=== PATIENT | female | born 1950 | race Caucasian/White ===

== ENCOUNTER 2021-02-16 11:10 | Emergency (ER) | payer MEDICARE ==
[~2021-02-16] VITALS: Ht 157.5 cm; Wt 54.4 kg
--- NOTE | 2021-02-16 11:30 | NUR ---
THE PATIENT IS BIB C/O C/O R ARM PAIN AND BILATERAL KNEE INJURY S/P TRIP AND FALL. THE PATIENT RATES PAIN 7/10. THE PATIENT DENIES SOB. RESPIRATION REGULAR AND UNLABORED. THE PATIENT IS ALERT AND ORIENTED X4. THE PATIENT IS IN ER #[id number]. THE PATIENT IS PROVIDED WITH A BLANKET FOR COMFORT. WILL CONTINUE TO MONITOR.
[2021-02-16] MEDS ORDERED: TDAP [DIPH/PERTUSSIS/TET] 0.5 ML VIAL IM ONE (12:10)
[2021-02-16] MEDS: TDAP [DIPH/PERTUSSIS/TET] 0.5 ML VIAL IM ONE (12:11)
--- NOTE | 2021-02-16 12:47 | NUR ---
PATIENT RATES RIGHT ARM PAIN 8/. RECEIVED AN ORDER OF NORCO 5/[address] GRACE.
[2021-02-16] MEDS ORDERED: HYDROCODONE/APAP 5/325MG TABLET ONE (12:48)
--- NOTE | 2021-02-16 12:50 | NUR ---
THE PATIENT CHANGED HER MIND AFTER OPENING NORCO 5/[address] GRACE MADE AWARE. THE MEDICATION WAIST WITNESED BY DONG LANZA.
[2021-02-16] MEDS: HYDROCODONE/APAP 5/325MG TABLET PO ONE (12:54)
[2021-02-16] MEDS ORDERED: TRAM50TA2 PO ×2 (12:58→12:59)
[2021-02-16] MEDS ORDERED: LORA-258 PO ×2 (12:58→12:59)
[2021-02-16] MEDS: LORAZEPAM 1 MG TABLET PO ONE (13:01)
[2021-02-16] MEDS: IBUPROFEN 600 MG TABLET PO ONE (13:01)
[2021-02-16] MEDS ORDERED: IBUPROFEN 600 MG TABLET ONE (13:02)
[2021-02-16] MEDS ORDERED: LORAZEPAM 1 MG TABLET ONE (13:02)
--- NOTE | 2021-02-16 13:54 | NUR ---
Patient discharged to home in stable condition. Written and verbal after care instructions given. Patient verbalizes understanding of instruction. The patient left ER in stable condition accompanied by her .
[2021-02-16 13:55] VITALS: BP 117/75
== END 2021-02-16 13:56 | disposition home or self-care (01) ==
LOC: ER 11:22
DX: S52.021A Displaced fracture of olecranon process without intraarticular extension of right ulna, initial encounter for closed fracture (principal); R51.9 Headache, unspecified; I10 Essential (primary) hypertension; F41.9 Anxiety disorder, unspecified; Z88.0 Allergy status to penicillin; Z79.899 Other long term (current) drug therapy; W01.198A Fall on same level from slipping, tripping and stumbling with subsequent striking against other object, initial encounter; Y93.89 Activity, other specified; Y92.89 Other specified places as the place of occurrence of the external cause; Y99.8 Other external cause status
CPT/HCPCS: 70450; 73070; 90471; 90715; 99284; A6403